=== PATIENT | male | born 1990 | race Caucasian/White ===

== ENCOUNTER 2019-09-03 21:16 | Emergency (ER) | payer SELFPAY ==
[~2019-09-03] VITALS: Ht 172.7 cm; Wt 74.8 kg
--- NOTE | 2019-09-03 21:25 | NUR ---
ED Nurse Note: Recieved pt BIBA found on steets very intoxicated with alcohol and having active emesis, pt is very lethargic and non-verbal, responds by moaning and groaning only with very deep, painful stimuli, all reflexes present, no sob orlabored breathing, pt has no wallet or identification, pt placed in room, will monitor for any changes or distress.
[2019-09-03] MEDS ORDERED: Tetanus/Diptheria/Pertussis IM ONE (21:30)
--- NOTE | 2019-09-03 23:00 | NUR ---
ED Nurse Note: Pt continues to sleep, very lethargic and drowsy, does not respond verbally and continues with emesis and urinating on self and floor, pt continues to not respond appropriately, no sob or labored breathing, pt remains unable to recall name, MD aware, will continue to closely monitor.
--- NOTE | 2019-09-04 01:15 | NUR ---
ED Nurse Note: Pt awakened in room, climed over side rails, had emesis and urine on floor then laid in it, pt awakens better and attemopts to respond, rambling speech only, staff assisted with putting pt back to bed and pt medicated as ordered for nausea and vomiting, PERRL, no sob or labored breathing, unable to asess v/s as pt refuses and becomes combative when touched, MD aware of pt behavior and at bedside to see also, will continue to clsoely monitor.
--- NOTE | 2019-09-04 02:10 | Emergency Room Report ---
History of Present Illness General Chief Complaint: Alcohol Intoxication Source: EMS Present Illness HPI 29 year-old male currently intoxicated, not giving a good history, brought in by EMS, patient was drinking, patient not giving any answers, falls back asleep while being interviewed unknown aggravated by alcohol consumption, alleviated by no alcohol consumption severity is moderate, constant. Allergies: Coded Allergies: No Known Allergies (Unverified , 09/03/19) Patient History Limited by: medical condition - Patient currently intoxicated Past Medical History: see triage record Social History: Reports: alcohol use Reviewed Nursing Documentation: PMH: Agreed; PSxH: Agreed Review of Systems All Other Systems: limited - Patient is currently intoxicated Physical Exam Vital Signs Date Time Temp Pulse Resp B/P (MAP) Pulse Ox O2 Delivery O2 Flow Rate FiO2 09/03/19 21:05 98.4 83 20 130/95 (107) 96 Room Air Sp02 EP Interpretation: reviewed, normal General Appearance: well appearing, no apparent distress, other - Sleeping Head: normocephalic, other - Abrasion posterior head Eyes: bilateral eye PERRL, bilateral eye EOMI ENT: uvula midline, moist mucus membranes Neck: supple, thyroid normal, supple/symm/no masses Respiratory: lungs clear, no respiratory distress, no retraction, no accessory muscle use Cardiovascular #1: normal peripheral pulses, regular rate, rhythm, no edema, no gallop, no murmur Gastrointestinal: non tender, soft, no guarding, no rebound Musculoskeletal: normal inspection Neurologic: alert, responsive Skin: no rash, warm/dry Medical Decision Making Diagnostic Impression: Primary Impression: Acute alcoholic intoxication Qualified Codes: F10.920 - Alcohol use, unspecified with intoxication, uncomplicated ER Course 29 year-old male presents with acute alcohol intoxication, Patient is unable to give a history, Patient with abrasion of the posterior head, will order CT scan Will allow patient to sober Evaluation 5:22 AM, patient with normal gait, sober Disposition Home w/ return precautions CT/MRI/US Diagnostic Results CT/MRI/US Diagnostic Results : Impression Preliminary Findings Only See Final Report For Complete Findings CT HEAD: No comparison study. No acute hemorrhage, mass effect or midline shift. Probable arachnoid cyst in the posterior fossa. Bilateral ethmoid and right frontal sinus disease. Radiologist: Vera Solo M.D. Study ready at 04:36 and initial results transmitted at 05:19 Last Vital Signs Date Time Temp Pulse Resp B/P (MAP) Pulse Ox O2 Delivery O2 Flow Rate FiO2 09/03/19 21:05 98.4 83 20 130/95 (107) 96 Room Air Disposition: HOME, SELF-CARE Condition: Stable Referrals: NOT CHOSEN IPA/,REFERRING (PCP) [facility] Patient Instructions: Alcohol Intoxication, [id number] Additional Instructions: The patient was provided with discharge instructions, notified to follow-up with a primary care doctor and or specialist in the next 24-48 hours, and to return to the ED if they have worsening of their symptoms. Please note that this report is being documented using [employer] technology. This can lead to erroneous entry secondary to incorrect interpretation by the dictating instrument. Satinder Mckeon MD Sep 04, 2019 02:10
[2019-09-04] MEDS ORDERED: Ondansetron ODT 8mg tab ORAL ONE (03:00)
--- NOTE | 2019-09-04 03:00 | NUR ---
ED Nurse Note: Pt becoming more awake and alert in room, asked name and and address, pt has rambling but able to understand first name and part of birthdate, will continue to allow pt to rest and re-attempt to retrieve info, no sob or labored breathing, emesis is less but remains, MD aware, no new orders recieved, waiting for head CT.
--- NOTE | 2019-09-04 04:10 | NUR ---
ED Nurse Note: Pt having more awake moments, pt gave name and ob and now able to be identified, remains lethargic and drowsy, poor historian, no further emesis, no sob or labored breathing, no s/s of pain, will continue to closely monitor and d/c when awakened and safe.
[2019-09-04 04:15] VITALS: BP 147/101
[2019-09-04 05:15] VITALS: BP 137/74
--- NOTE | 2019-09-04 05:25 | NUR ---
ED Nurse Note: Pt is completely awake and alert, pt is [place] speaking only, KrystalRN assisted with translation, pt is oriented x 4, ambulatory with steady gait, denies pain or any discomforts, emesis resolved, pt denies being homeless and states he is ok, Pt ambulating all aobut the department to bathroom, pt given water and no emesis or pain, toelrated well, MD assessed and ok to discharge, pt declines sandwich or any other needs, pt given d/c instuctions and d/c to lobby where he is waiting for friend to pick him up, NAD noted during d/c to home.
[2019-09-04 05:35] VITALS: BP 147/101
--- NOTE | 2019-09-04 09:48 | Diagnostic Imaging Report ---
Indication: Reason For Exam: PAIN headache/pain Technique: Continuous helical CT scanning of the head was performed without intravenous contrast material. Axial and coronal 5 mm sections were generated. Radiation dose was minimized using automated exposure control Dose: Total Dose Length Product - DLP 1489.[address] Dose Index - CTDIvol(s) 62.7 mGy. Comparison: None FINDINGS: There is no acute intracranial hemorrhage, mass effect or cortical edema. Probable arachnoid cyst in the posterior fossa. The ventricles, cisterns and sulci are normal for age. Mastoid air cells are clear. Mucosal thickening noted with opacification of some bilateral ethmoid air cells and the bilateral frontal sinuses, right greater than left. Appearance may suggest acute sinusitis. No acute skull fracture. IMPRESSION: No evidence of acute intracranial hemorrhage, mass effect or cortical edema. MRI may be obtained for more sensitive evaluation as clinically indicated. Bilateral ethmoid and frontal sinus disease. Findings correspond with the preliminary report. The CT scanner at [facility] is accredited by the [employer] and the scans are performed using protocols designed to limit radiation exposure to as low as reasonably achievable to attain images of sufficient resolution adequate for diagnostic evaluation.
== END 2019-09-04 05:35 | disposition home or self-care (01) ==
LOC: EDBD 21:16 → EMR 22:32
DX: F10.129 Alcohol abuse with intoxication, unspecified (principal); J32.2 Chronic ethmoidal sinusitis; Z23 Encounter for immunization
CPT/HCPCS: 70450; 90471; 90715; 99284; Q0162